=== PATIENT | female | born 1970 | race Caucasian/White ===

== ENCOUNTER 2021-08-11 14:00 | Emergency (ER) | payer OTHER ==
[~2021-08-11 14:00] MED LIST: BIOTIN5000 MCG PO; COLLAGEN PO; ESTRADIOL TRAN1 EAC1 TD; FOSAMAX70 MG PO; LOVAZA1 GM PO; PROVERA2.5 MG PO; VITAMIN D1000 UNIT PO; ZYRTEC10 M3 PO
[2021-08-11] MEDS ORDERED: MEDROL 4MG DOSEP4 MG PO (15:39)
[2021-08-11] MEDS ORDERED: CYCLOBENZAPRINE10 MG PO (15:39)
== END 2021-08-11 15:50 | disposition home or self-care (01) ==
LOC: FER 14:00
DX: S23.3XXA Sprain of ligaments of thoracic spine, initial encounter (principal); Z87.39 Personal history of other diseases of the musculoskeletal system and connective tissue; W19.XXXA Unspecified fall, initial encounter; W22.8XXA Striking against or struck by other objects, initial encounter
CPT/HCPCS: 72128